=== PATIENT | female | born 1965 | race Caucasian/White ===

== ENCOUNTER → 2016-09-21 | Outpatient (CLI) | payer OTHER ==
[~2016-09-21] VITALS: Ht 172.7 cm; Wt 99.8 kg
[~2016-09-21] MED LIST: ERGOCALCIF50000 UNIT PO; HYDROCHLOROTH12.5 M3 PO; SIMVASTATIN20 MG PO
== END | disposition home or self-care (01) ==
LOC: AMB 10:15
PROC: 0DBK8ZX Excision of Ascending Colon, Via Natural or Artificial Opening Endoscopic, Diagnostic (ICD-10-PCS; principal; 2016-09-21)
DX: Z12.11 Encounter for screening for malignant neoplasm of colon (principal); K63.5 Polyp of colon; K57.30 Diverticulosis of large intestine without perforation or abscess without bleeding; Z87.891 Personal history of nicotine dependence; I10 Essential (primary) hypertension; E78.01 Familial hypercholesterolemia; E66.9 Obesity, unspecified; Z68.34 Body mass index [BMI] 34.0-34.9, adult; Z82.49 Family history of ischemic heart disease and other diseases of the circulatory system; Z79.82 Long term (current) use of aspirin; Z82.3 Family history of stroke
CPT/HCPCS: 88305; J2250

== ENCOUNTER 2016-11-10 12:57 | Emergency (ER) | payer OTHER ==
[~2016-11-10] VITALS: Ht 172.7 cm; Wt 103.1 kg
[2016-11-10] MEDS ORDERED: FLEXERIL10 MG PO (14:37)
[2016-11-10] MEDS ORDERED: NAPROSYN500 MG PO (14:37)
[2016-11-10] MEDS ORDERED: TRAMADOL HCL50 MG PO (14:37)
[2016-11-10 14:54] VITALS: BP 129/87
== END 2016-11-10 14:55 | disposition home or self-care (01) ==
LOC: EME 12:57
DX: S20.219A Contusion of unspecified front wall of thorax, initial encounter (principal); S80.12XA Contusion of left lower leg, initial encounter; S80.02XA Contusion of left knee, initial encounter; S61.502A Unspecified open wound of left wrist, initial encounter; V49.40XA Driver injured in collision with unspecified motor vehicles in traffic accident, initial encounter; W22.10XA Striking against or struck by unspecified automobile airbag, initial encounter; Y92.415 Exit ramp or entrance ramp of street or highway as the place of occurrence of the external cause; I10 Essential (primary) hypertension; E78.5 Hyperlipidemia, unspecified; Z87.891 Personal history of nicotine dependence
CPT/HCPCS: 71020; 73564; 93005; 99281; 99284; J1885

== ENCOUNTER → 2017-08-05 | Outpatient (CLI) | payer OTHER ==
[~2017-08-05] MED LIST changes: +FLEXERIL10 MG PO; +NAPROSYN500 MG PO; +TRAMADOL HCL50 MG PO
== END | disposition home or self-care (01) ==
LOC: CDC 08:29
DX: Z01.810 Encounter for preprocedural cardiovascular examination (principal); I10 Essential (primary) hypertension; M25.561 Pain in right knee; S83.231A Complex tear of medial meniscus, current injury, right knee, initial encounter; M17.11 Unilateral primary osteoarthritis, right knee
CPT/HCPCS: 93000